=== PATIENT | male | born 1930 | race Caucasian/White ===

== ENCOUNTER 2016-04-07 17:26 | Inpatient (IN) | payer MEDICARE, OTHER ==
[~2016-04-07] VITALS: Ht 177.8 cm; Wt 57.2 kg
--- NOTE | ~2016-04-07 | CON ---
PATIENT'S NAME: NELY RUBIN [facility] AGE: 85 Y [address] ROOM: G3216 [place], [place] [address] [place] [facility] [place]: 04/07/2016 Consultation DISCHARGE DATE: FAMILY PHYSICIAN: SELENA SINGH MD ATTENDING PHYSICIAN: JAGJIT GIFFORD V DATE OF CONSULTATION: 04/08/2016 REFERRING PHYSICIAN: Raquel Sullivan MD A patient of the hospitalist. Dear colleague: Thank you for asking me to see Mr. Rubin who is an 85-year-old male patient admitted last night with 2 days' worth of significant shortness of breath. His initial work up, including his EKG, initial troponins, D-dimer, and chest x-ray were all negative. He was hospitalized for further workup. He has multiple comorbidities including prostate cancer, Parkinson disease, weight loss, and decrease in appetite. His is the one who gave most of the history. He has been getting more and more short of breath over the past several weeks to months, and the reason is not very clear. Currently, in the last 2 days, he was short of breath just walking just a couple of yards. There is no paroxysmal nocturnal dyspnea or orthopnea. There is no shortness of breath at rest when he is lying down. He has also had a dry cough for the past 2 months without any hemoptysis. He denies any chest pains whatsoever. He does have a sense of lightheadedness and a tendency to fall. He has no syncope though. He denies palpitations, and his ankles have been swelling up for a while; this may be as long as a couple of years. The patient has history of hypertension. He denies diabetes, elevated cholesterol, tobacco abuse, or family history of premature coronary artery disease. The patient has a history of coronary artery disease and had a PCI done 15 years ago. There is no history of OK, angina, or nitroglycerin use. There is no history of rheumatic fever, heart murmur, heart failure, dilated or enlarged heart, or any diagnosed cardiac arrhythmias. MEDICATIONS: 1. Wellbutrin 10 mg at bedtime. 2. Aricept 300 mg b.i.d. PATIENT'S NAME: NELY RUBIN [facility] AGE: 85 Y [address] ROOM: [place] [address] [place] [facility] [place]: 04/07/2016 Consultation DISCHARGE DATE: FAMILY PHYSICIAN: SELENA SINGH MD ATTENDING PHYSICIAN: JAGJIT GIFFORD V 3. Montelukast 10 mg a day. 4. Carbidopa and levodopa 25/100 two tablets t.i.d. 5. Protonix 40 mg a day. 6. Prednisone 5 mg a day, used for increasing his appetite. 7. Tamsulosin 0.4 mg at bedtime. 8. Carvedilol 3.125 b.i.d. 9. Lactulose, which has not really helped. 10. Aspirin 81 mg a day. 11. [place] Nasal [place]. 12. Magnesium oxide 400 mg once a day. 13. Multivitamin once a day. 14. Acetaminophen p.r.n. 15. CPAP unit. ALLERGIES: 1. SULFA. 2. STATINS CAUSE JOINT PAINS. 3. PIROXICAM. 4. RAMIPRIL. PAST MEDICAL HISTORY: 1. The patient has chronic scoliosis. 2. History of prostate cancer. His PSA, bone scan, and MRI have been "stable.". 3. Hernia, left sided, operated. 4. Bilateral cataract surgeries. 5. Bilateral glaucoma surgeries. 6. Appendectomy. 7. Parkinson disease. 8. Sleep apnea. 9. Narcolepsy. SOCIAL HISTORY: The patient is . He is retired. He denies abusing alcohol. His appetite has been poor for the past year, and he has lost almost 50 pounds in the last year to a year and a half. Sleep is fair. In fact, he may sleep too much during daytime from "narcolepsy." FAMILY HISTORY: No premature coronary artery disease. REVIEW OF SYSTEMS: A 12-point review of systems reveals: 1. A 50-pound weight loss as mentioned earlier. 2. Decrease in memory. PATIENT'S NAME: NELY RUBIN [facility] AGE: 85 Y [address] ROOM: [place] [address] [place] [facility] [place]: 04/07/2016 Consultation DISCHARGE DATE: FAMILY PHYSICIAN: SELENA SINGH MD ATTENDING PHYSICIAN: JAGJIT GIFFORD V 3. Heartburns. 4. Nasal drainage. 5. Coughing with swallowing and difficulty swallowing right away, possibly due to Parkinson disease. 6. Incontinence of urine. 7. DJD. 8. Depression. PHYSICAL EXAMINATION: VITAL SIGNS: His blood pressure is 156/79, heart rate 74, respirations 16, and afebrile. HEENT: Normal. NECK: Supple with no JVD, thyromegaly, lymphadenopathy, or carotid bruit. PMI is not well located. First and second heart sounds are regular. There are no added sounds or murmurs. The heart sounds are distant. CHEST: Clear to auscultation. ABDOMEN: Soft. EXTREMITIES: Trace edema, if anything. CENTRAL NERVOUS SYSTEM: Appears to be able to move all 4 extremities, and as mentioned earlier, has history of Parkinson's. ASSESSMENT: Worsening shortness of breath. He appears to have ruled out for myocardial infarction, and his D-dimer is negative, and BNP is negative. His chest x-ray is negative for any acute processes. He is getting an echocardiogram today. RECOMMENDATIONS: We will do a Lexiscan in the morning. Further evaluations will depend on the Lexiscan report. Again, I appreciate this opportunity to participate in the care of Mr. Rubin. MD LUIS LUCIANO/valeria /[id number] d: 04/08/16 1358 t: 04/26/16 1324, CONSULTATION REPORT
--- NOTE | ~2016-04-07 | ECHO ---
Transthoracic Echocardiography Report (TTE) Demographics Patient Name NELY RUBIN Date of Study 04/08/2016 MICHAEL Patient Number [id number] Visit Number [id number] Date of 1930 Room Number G3216 Gender Male Number Age 85 year(s) Referring Rosalina Mckeon MD Cross Country Truck Driver Nancy Marion RD, Physician RVT Physician Interpreting Nate García Mobile Equipment Servicer Physician Supervising Ordering Karissa Rodas MD/ROBINP Physician MD Nurse Stress Activities Counselor Conclusions Contractility Score Summary Normal Left Ventricular contractility was noted. Summary Technically difficult exam due to patient position and coughing. The estimated left ventricular ejection fraction is 60% with normal WM.LV internal dimension and WM are normal.DELGADO noted. MAC. Trivial MR. RHCs are mildly dilated. Increased RA pressures. Mild TR with normal pulmonary pressures. Small clinically insignificant circumferential pericardial effusion. There is no echocardiographic evidence of cardiac tamponade. Pleural effusion present. Procedure Type of Study TTE procedure:2D Echocardiogram. Procedure Date Date: 04/08/2016 Start: 01:55 PM Study Location: Inpatient Portable Technical Quality: Adequate visualization Indications:Dyspnea with exertion. Appropriate Use Criteria: 9 Patient Status: Routine HR: 65 bpm M-Mode/2D Measurements LV Diastolic Dimension: 3.32 cm LV Systolic Dimension: 1.9 cm LV Septum Diastolic: 0.9 cm LV PW Diastolic: 0.77 cm AO Root Dimension: 3.4 cm Cardiac Output: 2.99 l/min AV Cusp Separation: 1.8 cm Post Pericard Effusion: 1.5 cm LA volume: 26 ml RV Base: 2.65 cm LVOT: 1.6 cm RV Mid: 1.92 cm LVOT VTI: 22.9 cm RV Length: 5.46 cm LV Stroke volume: 46.02 ml TDI-S': 11.1 cm/s Doppler Measurements AV Peak Velocity: 1.01 m/s MV Peak E-Wave: 0.48 m/s AV Peak Gradient: 4.08 mmHg MV Peak A-Wave: 0.64 m/s AV Mean Gradient: 2 mmHg MV E/A Ratio: 0.74 LVOT Peak Velocity: 0.82 m/s MV P1/2t: 100 msec TR Gradient:23.43 mmHg PV Peak Velocity: 1.11 m/s Estimated RAP:8 mmHg PV Peak Gradient: 4.93 mmHg Estimated RVSP: 31 mmHg Estimated PASP: 31.43 mmHg E' Lateral Velocity: 0.04 m/s A' Lateral Velocity: 0.07 m/s Findings Left Ventricle DELGADO with normal internal dimension,EF and WM. Right Ventricle Mildly dilated RV with normal function Left Atrium Normal left atrial size. Right Atrium RA is mildly dilated. Mitral Valve Trivial mitral regurgitation by color Doppler. Mild mitral annular calcification. Aortic Valve Normal aortic valve structure and function. Tricuspid Valve Mild tricuspid regurgitation by color Doppler. Pulmonic Valve Normal pulmonic valve structure and function. Pericardial Effusion Small clinically insignificant circumferential pericardial effusion. There is no echocardiographic evidence of cardiac tamponade. Miscellaneous Visualized portions of the aortic root and ascending aorta appear normal in size. Pleural Effusion Pleural effusion present. Contractility Score LV regional wall motion:(0-Non visualized 1-Normal 2-Hypokinesis 3-Akinesis 4-Dyskinesis 5-Aneurysm) Signature dtt: Raquel Sullivan dtd: 04/08/16 8075 Physician Self Edit
--- NOTE | ~2016-04-07 | ESTC ---
Cardiac Perfusion Imaging Demographics Patient Name CARYN RODRIGUEZ Gender Male Patient Number [id number] Race Visit Number [id number] Ethnicity Corporate ID Room Number G3216 Accession Number [id number] Height 70 inches Date of 1930 Weight 174 pounds Interpreting Nate García Date of study 04/09/2016 Physician SOMERS Supervising /HARLEY ESTEVES Technologist Sona Cleaning MD Ordering Physician Nate García Stress Wilbur Allen MD biomass plant technician RVT Stress ECG Reading Nate García Nurse Saeid Morales Physician machine sign writer Procedure Type: Nuclear Stress Test:Pharmacological, Lexiscan, Cardiolite Stress Test Procedure Start time: 04/09/2016 10:45 Indications: Hypertension. Conclusions Summary No perfusion abnormalities. LVEF:77%. Normal wall motion. Stress Protocols Resting ECG RSR. Pre-stress physical exam: Un changed. Predicted HR: 136 bpm ECG Findings No ECG changes suggestive of ischemia. Arrhythmias No rhythm abnormality. Symptoms No symptoms. Stress Interpretation Normal hemodynamic changes with Lexiscan. No chest pains or other symptoms. No ischemia. No arrythmias. Imaging Results Applied corrections Study artifacts 1) Diaphragmatic attenuation - Motion correction applied High risk findings Summed scores - Summed stress score: 6 - Summed rest score: 7 - Summed difference score: -1 Stress ejection Ejection fraction:76 % EDV :72 ml ESV :17 ml Stroke volume :55 ml LV mass :99 gr LV size:Normal Normal LV function Imaging Protocols Rest Stress Isotope:Tc99m Sestamibi IV Isotope: Tc99m Sestamibi IV Isotope dose:11.9 mCi Isotope dose:36.2 mCi Date:04/09/2016 08:50 Date:04/09/2016 15:10 Technique: SPECT Technique: Gated Supine SPECT Supine IV remains in place after procedure. Scan Time:45-60 minutes post injection Procedure Medications - Regadenoson (Lexiscan) 0.4 mg IV over 10-15 sec. I.V. 0.4 mg. Medical History Admission Data Admission date: 04/10/2016 Admission Time: 11:00 Hospital Status: Inpatient. Signatures dtt: Raquel Sullivan dtanisa: 04/09/16 1045 Physician Self Edit
--- NOTE | ~2016-04-07 | PUL ---
PATIENT'S NAME: NELY RUBIN [facility] AGE: 85 Y [address] ROOM: [address] [address] [place] [facility] [place]: 04/10/2016 Pulmonary DISCHARGE DATE: FAMILY PHYSICIAN: SELENA SINGH MD ATTENDING PHYSICIAN: JAGJIT GIFFORD V NAME OF PROCEDURE: Overnight Pulse Oximetry DATE OF PROCEDURE: April 10 to April 11, 2016 REASON FOR EXAM: Nocturnal hypoxemia RESULTS: The test was performed on room air. The recording time was 8 hours, 34 minutes, with a total valid sampling time of 8 hours, 26 minutes and 48 seconds. The highest pulse was 128, lowest pulse was 78, with a mean pulse of 90. The highest SpO2 was 97%, lowest SpO2 was 81%, with a mean SpO2 of 92.9%. The patient spent 6 minutes and 40 seconds with SpO2 less than 89%, representing 1.3% of the total sleep time. The desaturation event index was normal at 4.4. PHYSICIAN INTERPRETATION: The patient has evidence of significant nocturnal hypoxia and would qualify for supplemental oxygen as per Medicare criteria. ALAN SAEED MD RFTunde/albino /[id number] dtt: 04/15/16 1522 , ALAN SAEED dtd: 04/15/16 1102
--- NOTE | ~2016-04-07 | DS ---
PATIENT'S NAME: NELY RUBIN [facility] AGE: 85 Y [address] ROOM: [address] [address] [place]: [facility] [place]MIT DATE: 04/10/2016 Discharge Summary DISCHARGE DATE: 04/20/2016 FAMILY PHYSICIAN: Linda Romano MD ATTENDING PHYSICIAN: Hair Hancock V PRINCIPAL DISCHARGE DIAGNOSIS: Failure to thrive. SECONDARY DIAGNOSES: 1. Dementia, possibly Parkinson's. This has not been finally decided. 2. Orthostatic hypotension. 3. Chronic hypoxic respiratory failure. 4. Obstructive sleep apnea, severe. 5. Prostate cancer. 6. Frequent falls with festinating, shuffling gait. CONSULTATIONS: 1. Neurology Dr. Asif. 2. Cardiology Dr. Sullivan. PROCEDURES: Echocardiogram, brief summary of results: This is a technically difficult exam which showed left ventricular ejection fraction 60% with normal left ventricular dimension and wall motion. Trivial mitral regurgitation. Increased right atrial pressures. There is no cardiac tamponade or pleural effusion present. Lexiscan Cardiolite stress: No perfusion abnormalities. Left ventricular ejection fraction 77%. Normal wall motion. Overnight pulse oximetry, April 10 to April 11, the patient has evidence for significant nocturnal hypoxia and qualifies for supplemental oxygen. He was noted to have a pulse up to 128 and mahamed of 78. Oxygen saturation with highest was 97%, lowest was 81%. CONSULTATIONS: None. COMPLICATIONS: None. BRIEF HISTORY: Mr. Rubin is an 85-year-old male who has had several years history of a shuffling gait. In the last 6 months, he had been seen by a neurologist, who thought he may have Parkinson's and started him on antiparkinsonian medications. He continued to have frequent falls. He has had a 50-pound weight loss over about 2 years. His has been the primary provider of care for her and gives a medical history as well. He was brought to the hospital because of her concern about worsening fatigue. She reports that on admission he had been sleeping all day and gets very short of breath with exertion, has difficulty with his balance with frequent falls. She reported to me he has been falling PATIENT'S NAME: NELY RUBIN [facility] AGE: 85 Y [address] ROOM: [address] [place], [place] [address] LOCATION: [facility] [place]MIT DATE: 04/10/2016 Discharge Summary DISCHARGE DATE: 04/20/2016 FAMILY PHYSICIAN: Linda Romano MD ATTENDING PHYSICIAN: Hair Hancock V at least once a week. He had severe constipation as well. So, there is general concern about his neurologic status with depression. He was seen by Dr. Sullivan for his complaint of shortness of breath. Although, his initial EKG, troponins, D-dimer, and chest x-ray were negative. He was found to have significant orthostatic hypotension. His orthostatic hypotension has persisted after the initiation of midodrine, most recently at 2:00 p.m. yesterday afternoon, lying his blood pressure was 123/61, standing was 95/51. He was evaluated for his dementia by Dr. Asif and Xochitl Troncoso. He is not obviously meet diagnostic criteria for Parkinson disease. He does not have a tremor at rest. He does not have cogwheel rigidity. Although, his gait is festinating and shuffling and it has been that way for quite a while. His orthostatics hypotension is a red flag for evidence against this diagnosis. He will follow up in 2 weeks with nurse practitioner and see Dr. Asif at his first available appointment in the next 4 to 6 weeks. As far as his nutritional status, his appetite has been good here twice as his intake he has actually been better than at home. He was started on Megace, was getting a dose of 40 mg a day which was increased to 400 mg daily on the . He will continue on this as an outpatient. He should continue to follow up with his primary care physician, Dr. Linda Romano. I would recommend the patient may benefit from an endocrinology evaluation sometime in the near future. Pending labs at the time of discharge include 25-hydroxy vitamin D level. INSTRUCTIONS FOR THIS DISCHARGE: The patient is a full code. He is to be transferred to [facility] with the regular diet nectar thickened liquids and one-to-one feeding as per speech evaluation here. His activity as tolerated with OT, PT, and speech therapy and weightbearing as tolerated with fall precautions. He is on oxygen p.r.n. and his CPAP at 8 cm while sleep with some supplemental oxygen. He should have ALEX stockings to the upper thighs on 12/09. Other followup appointments as above with Neurology. PCP should see within 1 week of discharge. MEDICATIONS AT THE TIME OF DISCHARGE: 1. Aspirin 81 mg chewable daily with food. 2. Zebeta 2.5 mg p.o. daily. 3. Bupropion 100 mg p.o. daily for depression. 4. Colace 100 mg t.i.d. constipation. 5. Magnesium oxide 400 mg p.o. daily for hypomagnesemia. 6. Megace 400 mg p.o. daily for poor appetite and mild protein malnutrition. 7. Midodrine. 8. Singulair 10 mg at h.s. PATIENT'S NAME: NELY RUBIN [facility] AGE: 85 Y [address] ROOM: [place] [address] LOCATION: [facility] [place] ADMIT DATE: 04/10/2016 Discharge Summary DISCHARGE DATE: 04/20/2016 FAMILY PHYSICIAN: Linda Romano MD ATTENDING PHYSICIAN: Hair Hancock V 9. Multiple vitamin 1 daily. 10. Protonix 40 mg p.o. daily. 11. MiraLAX p.o. b.i.d. 12. Senna two daily. 13. Flomax 0.8 mg at h.s. 14. Tylenol p.r.n. pain. 15. Bisacodyl suppository p.r.n. constipation. CONDITION AT DISCHARGE: Good. SULY BENSON MD LM/valeria /[id number] d: 04/21/16 1033 t: 04/25/16 1425, DISCHARGE SUMMARY
--- NOTE | ~2016-04-07 | CON ---
PATIENT'S NAME: NELY RUBIN [facility] AGE: 85 Y [address] ROOM: [address] [address] LOCATION: [facility] [place] ADMIT DATE: 04/10/2016 Consultation DISCHARGE DATE: FAMILY PHYSICIAN: SELENA SINGH MD ATTENDING PHYSICIAN: JAGJIT GIFFORD V DATE OF CONSULTATION: 04/11/2016 REFERRING PHYSICIAN: Raquel Sullivan MD PALLIATIVE MEDICINE CONSULTATION LOCATION: Med-Surg Unit, room 3216. REFERRING PROVIDER: Linda Webster PA-C CHIEF COMPLAINT: Palliative Care referral for family support due to multiple comorbidities. HISTORY OF PRESENT ILLNESS: The patient is an 85-year-old male, who was recently diagnosed within the last year with Parkinson disease, who was admitted to [facility] due to complaints of weakness, a 50-pound weight loss in the last 2 years as well as increasing shortness of breath and falls at home. During this hospital stay, the patient has had restlessness and confusion especially at night. He has continued to sleep the majority of the day and his appetite is slightly improved but not great. Prior to this hospitalization, the patient had been living at home with his who is his primary caregiver. He also has a son who lives here in town, but who is working mechanical drawing teacher. His also has a recent diagnosis of breast cancer and is currently undergoing chemotherapy. The patient complains of being very sleepy and tired. He denies pain. Has had some recent questionable issues with some dysphagia and possible aspiration. He admits to significant depression and is quite tearful during my visit. reports a 50-pound weight loss in the last 2 years. She has concerns as to whether his Parkinsons and conditions are being treated appropriately as he has had increasing weakness, unsteady gait, and multiple falls at home as well as one here at the hospital. Since hospitalization, his shortness of breath has improved and he has had some significant changes with orthostatic blood pressures and his expresses feelings of feeling very overwhelmed. Given all of this, Palliative Care has been consulted to assist with patient, family support, and goals of care discussion. PAST SURGICAL HISTORY: Previous Operations: PATIENT'S NAME: NELY RUBIN [facility] AGE: 85 Y [address] ROOM: [place] [address] LOCATION: [facility] [place] ADMIT DATE: 04/10/2016 Consultation DISCHARGE DATE: FAMILY PHYSICIAN: SELENA SINGH MD ATTENDING PHYSICIAN: JAGJIT GIFFORD V 1. Appendectomy. 2. Hernia repair. 3. Cardiac stents. PAST MEDICAL HISTORY: 1. Parkinson disease diagnosed within the last year. 2. Hypertension. 3. Depression. 4. GERD. 5. Memory impairment. 6. Obstructive sleep apnea, wears CPAP at night. 7. Narcolepsy. 8. Hypercholesterolemia. 9. History of prostate cancer. 10. Coronary artery disease. MEDICATIONS: Please see current MAR. SOCIAL HISTORY: The patient is . He had been living with his here in [place]. 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 Continuing to pay on mortgages and diagnosis of Parkinson as well as patient's 's recent diagnosis of breast cancer for which she is currently undergoing chemotherapy. No history of tobacco or alcohol use. FAMILY HISTORY: The patient's father had a stroke. The patient's mother had heart failure and cancer, and he has siblings with heart failure and heart disease. REVIEW OF SYSTEMS: All other systems reviewed and are negative except for as noted in HPI. PHYSICAL EXAMINATION: VITAL SIGNS: Blood pressure 126/57, heart rate 87, temperature 98.1, respirations 17, and O2 saturation is 94% on room air. GENERAL: Reveals a sleepy though easily arousable, frail appearing elderly white male, who is lying in the hospital bed, and does not appear to be in any acute distress. HEENT: Normocephalic and atraumatic. Pupils are equal and reactive to light. Sclerae anicteric. Conjunctivae pink. He does have a masklike faces. Tongue and mucous membranes are moist and pink. Dentition is adequate. CARDIOVASCULAR: Heart tones regular rate and rhythm. I am not able to note a murmur. PATIENT'S NAME: NELY RUBIN [facility] AGE: 85 Y [address] ROOM: [place] [address] LOCATION: [facility] [place] ADMIT DATE: 04/10/2016 Consultation DISCHARGE DATE: FAMILY PHYSICIAN: SELENA SINGH MD ATTENDING PHYSICIAN: JAGJIT GIFFORD V RESPIRATORY: Respirations are regular and nonlabored at rest. Clear to auscultation bilaterally. GASTROINTESTINAL: Abdomen is soft, nontender, and bowel sounds are present. No masses or organomegaly. MUSCULOSKELETAL: No significant joint deformities. Peripheral pulses are strong and equal bilaterally. No clubbing, cyanosis, or edema. SKIN: Warm and dry. No unusual lesions or rashes. NEUROLOGIC: Grossly intact. Does provide eye contact though he is quite drowsy. PSYCHIATRIC: The patient is quite tearful. 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 IMPRESSION AND PLAN: 1. Parkinson disease. Neurology on board. 2. Dysphagia. Speech is on board. 3. Weakness and unsteady gait. The patient is working with PT and OT. 4. Depression. I spent a significant amount of time visiting with both the patient and his . At this point, he is on Wellbutrin and this is a home medication. We would recommend follow up with an outpatient counselor as well as a Pastoral Care visit. 5. Advance directives. At this point, the patient is a full code per the chart. does report that they have completed advance directives and they are at home. I had a very long visit with the patient and his , provided active listening, emotional support, and problem solving. I talked with the patient and his through some of their issues and concerns. Did also discuss discharge options as this has been a concern for providers. We discussed short-term skilled stay for therapies and the patient relates that finances are a concern. Discussed with both the patient and his that should he choose to go to a long term, he would have initially have Medicare days as he went through his therapy and we would see how he does, versus having paid private caregivers come to the home versus an assisted living situation for both of them. But these last two options will be a bit more difficult as finances are a concern. The patient has a lot of guilt and depression related to his financial concerns with loss of business as well as their recent medical diagnoses. The patient is very tearful and feels responsible for having put them in this situation and provided emotional support and counseling, in regard to this would recommend outpatient counseling followup. I also did talk with the patient and his about Pastoral Care visit as I think this may also be helpful with some of his concerns. The patient may also benefit from a Psychiatry consult just to review medications, etc,. Following my visit, I coordinated care with Care Management as well as the Hospitalist Service. At this point, the goal is to work on a safe discharge plan with long-term goal being for the patient to PATIENT'S NAME: NELY RUBIN [facility] AGE: 85 Y [address] ROOM: [address] [address] LOCATION: [facility] [place] ADMIT DATE: 04/10/2016 Consultation DISCHARGE DATE: FAMILY PHYSICIAN: SELENA SINGH MD ATTENDING PHYSICIAN: JAGJIT GIFFORD V return back home. Total visit was 110 minutes greater than 50% of this time was spent providing education on chronic illnesses, multiple comorbidities, as well as counseling on situation and problem solving and coordination of care with staff. Thank you for allowing me to assist the patient and family. NOLAN ZARCO NP FOR MD DONTA SIDHU/modrashmi /[id number] CC: Linda Webster PA-C d: 04/19/16 1812 t: 04/25/16 1233, CONSULTATION REPORT
--- NOTE | ~2016-04-07 | CON ---
PATIENT'S NAME: NELY RUBIN [facility] AGE: 85 Y [address] ROOM: [address] [place], [place] [address] [place] [facility] [place]: 04/07/2016 Consultation DISCHARGE DATE: FAMILY PHYSICIAN: SELENA SINGH MD ATTENDING PHYSICIAN: JAGJIT GIFFORD V DATE OF CONSULTATION: 04/08/2016 REFERRING PHYSICIAN: Raquel Sullivan MD NEUROLOGIC CONSULTATION DATE AND TIME: 04/08/2016 at 01:50 p.m. REASON FOR CONSULTATION: Management of Parkinson's medications and recommendations for depression medications appropriate for Parkinson's. HISTORY OF PRESENT ILLNESS: This is an 85-year-old, male, whose history was provided by the spouse and from records from Dr. Muñoz's office. Although he has only been diagnosed for his Parkinson's for 6 months, his who is an RN has been suspicious he has had it much longer than that. He also has obstructive sleep apnea, prostate cancer that has been treated with radiation, coronary artery disease. The reason he comes to the hospital is really quite a few problems. The first concern is his worsening fatigue. He pretty much sleeps all day. He does get dyspneic with any exertion. He has been having frequent falls recently and he has lost about 50 pounds over the last 2 years. His is also concerned about the patient's being undertreated for his Parkinson's and his depression. His primary care provider will monitor as to the Parkinson's medication and his neurologist is on extended leave for 3 months. The patient does not volunteer much information except does complain of fatigue. He does say he is short of breath even with talking at times. He is also admitted for significant constipation. He denies any hallucinations, any vision disturbances, or any difficulties with thought processes. REVIEW OF SYSTEMS: The patient denies any recent illnesses. He states he only eats two meals a day and he is not hungry much after that. He does complain of significant constipation. Denies any palpitations, but does complain of shortness of breath. Does complain of frequent cough. Does complain of weakness and frequent falls. 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 ROOM: [address] [place], [place] [address] [place] [facility] [place] DATE: 04/07/2016 Consultation DISCHARGE DATE: FAMILY PHYSICIAN: SELENA SINGH MD ATTENDING PHYSICIAN: JAGJIT GIFFORD V impairment, abnormal weight loss, obstructive sleep apnea, malaise and fatigue, and narcolepsy. He also complains of hypercholesterolemia and prostate cancer. MEDICATIONS: On the chart and reviewed by me. Of note, for neurology he is on Wellbutrin 100 mg daily. This has been wean down due to somnolence. He is on carbidopa and levodopa 25/100, 2 tablets at 9 o'clock, 1:00 p.m., and 3:00 p.m. He was taking Sinemet CR at night, however, this was thought to have induced hallucination and he is not on that anymore. He is also on donepezil 10 mg p.o. q. day. FAMILY HISTORY: Reviewed and on the chart and not significant due to his advanced age. SOCIAL HISTORY: The patient is . 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 PHYSICAL EXAMINATION: VITAL SIGNS: His blood pressure is 154/72, heart rate is 58. He is saturating 100% on room air. His temperature is afebrile and respirations are 18. GENERAL: This is a very thin cachectic elderly male, in no acute distress. NEUROLOGIC: He does show a masked face presentation. There is no cogwheel rigidity. Of note, he was examined prior to his 1:00 p.m. dose of Sinemet. His gait is somewhat shuffling. In looking at him get up from the bed, he leans forward. His posture is with his head forward and slightly bent. EYES: EOMI. Pupils equal and reactive to light and accommodation. NECK: Forward leaning. No lymphadenopathy. No rigidity. LUNGS: Clear to auscultation. HEART: Regular. GASTROINTESTINAL: Abdomen is soft, nontender, and nondistended. PSYCHIATRIC: Reveals depressed mood. Flat affect. DIAGNOSTIC DATA: A negative set of cardiac enzymes. Normal TSH, normal CRP. He did have a normal CBC with normal differential. Procalcitonin was negative. He was negative for influenza, and he does have a normal chest x-ray. ASSESSMENT AND PLAN: 1. Parkinson disease. We will involve Dr. Asif in assessment of patient for possible step off carbidopa and levodopa. PATIENT'S NAME: NELY RUBIN [facility] AGE: 85 Y [address] ROOM: [address] [address] [place] [facility] [place]: 04/07/2016 Consultation DISCHARGE DATE: FAMILY PHYSICIAN: SELENA SINGH MD ATTENDING PHYSICIAN: JAGJIT GIFFORD V 2. Depression. The patient is given bupropion 100 mg daily. Again we will involve Dr. Asif in discussion on management of this medication. 3. Hallucinations with parkinsonism. The patient was to start on Nuplazid at his other facility, but the plans fell through. The patient will need to develop an outpatient plan for managing his Parkinson's medications. The was present during the exam and discussed the plan of care. She voices no questions. Thank you for this very interesting consult. TRISTA HESS APRN FOR SAMY ASIF MD PP/modl /[id number] d: 04/08/16 2253 t: 04/26/16 1604, CONSULTATION REPORT
--- NOTE | ~2016-04-07 | HP ---
PATIENT'S NAME: NELY RUBIN [facility] AGE: 85 Y [address] ROOM: [place] [address] [place] [facility] [place]: 04/07/2016 History & Physical DISCHARGE DATE: FAMILY PHYSICIAN: SELENA SINGH MD ATTENDING PHYSICIAN: JAGJIT GIFFORD V DATE OF SERVICE: CHIEF COMPLAINT FOR THIS ADMISSION: Fatigue. HISTORY OF PRESENT ILLNESS: The patient is an 85-year-old male, whose history is provided primarily by his spouse. He has a past medical history of recently diagnosed Parkinson's (6 months ago), obstructive sleep apnea, and prostate cancer, treated with radiation as well as coronary artery disease, status post distal stent. He has been brought in by his due to an amalgamation of problems. 1. The first major concern is worsening fatigue. The patient pretty much sleeps all day and gets very dyspneic with exertion. 2. Difficulty with balance. The patient falls very frequently. 3. Severe constipation. 4. Profound weight loss approximately 50 pounds in the last 2 years. She has been concerned about the patient being undertreated for his Parkinson's as well as his depression, but his current regimen has not been adjusted by primary care provider and his neurologist is out of town. The patient himself just volunteers fatigue, but no other symptoms. He does, however, become considerably short of breath, even with talking. He denies any nausea, vomiting, chest pain, or palpitations, but does admit to significant constipation. REVIEW OF SYSTEMS: All systems have been reviewed and are negative aside from the pertinent positives mentioned above. EMERGENCY ROOM COURSE: In the ER, the patient had a detailed workup, all of which was remarkably negative. PAST MEDICAL HISTORY: As stated in the HPI. SOCIAL HISTORY: Negative for any toxic habits. 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 PATIENT'S NAME: NELY RUBIN [facility] AGE: 85 Y [address] ROOM: [place] [address] [place] [facility] [place]: 04/07/2016 History & Physical DISCHARGE DATE: FAMILY PHYSICIAN: SELENA SINGH MD ATTENDING PHYSICIAN: JAGJIT GIFFORD V FAMILY HISTORY: Reviewed and is noncontributory due to his advanced age. CURRENT MEDICATIONS: 1. Acetaminophen. 2. Aspirin. 3. Bupropion. 4. Carbidopa. 5. Levodopa. 6. CPAP. 7. Donepezil. 8. Etodolac. 9. Lactulose. 10. Magnesium oxide. 11. Montelukast. 12. Multivitamin. 13. Pantoprazole. 14. Prednisone, which was started as an appetite stimulant. 15. Sodium chloride nasal spray. 16. Tamsulosin. PHYSICAL EXAMINATION: VITAL SIGNS: Blood pressure 178/81, heart rate 56, saturating 100% on 2 L nasal cannula, temperature 98.1, and respirations are 16. GENERAL: Appears as a cachectic elderly male, in no acute distress. NEUROLOGICAL: Shows slightly masked facies, but no cogwheel rigidity and no focal neurological deficits. EYES: Reveal pupils equal and reactive to light. LYMPHATIC: Shows no cervical lymphadenopathy. ENDOCRINE: Shows no thyromegaly. LUNGS: Clear to auscultation. HEART: Rate is regular. No appreciable murmurs, gallops, or rubs. GI: Abdomen is soft, nontender, nondistended. : Reveals no costovertebral angle tenderness. VASCULAR: Reveals 2+ pedal pulses. MUSCULOSKELETAL: Shows some muscle atrophy. PSYCHIATRIC: Reveals depressed mood with preserved cognition and flat affect. DIAGNOSTIC DATA: The patient had an ABG with a pO2 of 65, saturating 93%, and unremarkable basic metabolic workup. Negative sets of cardiac enzymes. Normal TSH. Normal CRP. Normal CBC, normal differential. Negative procalcitonin. Negative influenza, and a normal chest x-ray. ASSESSMENT AND PLAN: PATIENT'S NAME: NELY RUBIN [facility] AGE: 85 Y [address] ROOM: [address] [address] [place] [facility] [place]: 04/07/2016 History & Physical DISCHARGE DATE: FAMILY PHYSICIAN: SELENA SINGH MD ATTENDING PHYSICIAN: JAGJIT GIFFORD V 1. This is an 85-year-old male, who is being admitted with adult failure to thrive. I believe that his symptoms are probably a combination of Parkinson's as well as undertreated depression. For this, I offers a Neurology consultation in the morning, which the gladly agreed to. She does feel that his Parkinson's is undertreated and in fact the patient had a decrease in the dose of his Wellbutrin. Interestingly, he is on donepezil, but I really do not appreciate any evidence of dementia on my exam. I also recommended that a consultation with a psychiatrist may be helpful in case his presentation is more attributed to depression. Given the fact that he does get short of breath, we will get a 2- dimensional echocardiogram, though he does not have any evidence of heart failure on exam or on his chest x-ray. 2. Constipation: This is a significant concern for the caregiver, and we will take him off lactulose and put him on Colace and MiraLAX. 3. Obstructive sleep apnea: The patient was recently rechecked, and he does well on 8 mm of CPAP, I will continue that. 4. Steroid therapy: I do not believe that the patient is benefitting from steroids at all, and we will try and taper down the dose in a careful manner as he has been on prednisone for over a month now. 5. Deep vein thrombosis prophylaxis will be instituted if the patient is in the hospital for longer than 48 hours. 6. Disposition: We will get PT and OT involved in his care. Additional management will depend on clinical course. Time dedicated to this patient's encounter is 35 minutes. MD ANANYA JAMES/valeria /[id number] D: [id number] T: [id number] HISTORY & PHYSICAL
--- NOTE | ~2016-04-07 | ER ---
PATIENT'S NAME: NELY RUBIN [facility] AGE: 85 Y [address] ROOM: [address] [address] [place] [facility] [place]: 04/07/[place] ER/Outpatient Report DISCHARGE DATE: FAMILY PHYSICIAN: SELENA SINGH MD ATTENDING PHYSICIAN: JAGJIT GIFFORD V Admission date and time documented on the medical record. I saw the patient at 1805 hours when I came on shift. CHIEF COMPLAINT: Shortness of breath with exertional dyspnea worsening over the past week. HISTORY OF PRESENT ILLNESS: This patient is an 85-year-old male, who over the past week has had increasing shortness of breath, over the past 2 days has had increasing exertional dyspnea. Does have a productive cough at times. No chest pain. No back pain. No headache, eyes, ears, nose, throat pain. No fall or trauma. He was diagnosed with Parkinson disease about 6 months ago, so he is having more and more difficulty with ambulation. No recent fever, chills, or sweats. No lightheadedness, dizziness, syncope, or near syncope. No abdominal pain, nausea, vomiting, diarrhea. No urinary frequency, urgency, or dysuria. Has a decreased appetite. He has lost 50 pounds over the past 2 years. No joint/muscle swelling, redness, or pain. He does have Parkinson's with cogwheel rigidity. No skin eruptions or rash. Does have a history of obstructive sleep apnea, uses CPAP. Has coronary artery disease, narcolepsy. Parkinson's with some dementia. No endocrine problems. No psych issues. HOME MEDICATIONS: See attached medication list. ALLERGIES: ALTACE, STATINS, SULFA, FELDENE. SOCIAL HISTORY: Nonsmoker and nondrinker. SIGNIFICANT PAST MEDICAL HISTORY: Atherosclerotic ischemic heart disease with coronary artery disease, obstructive sleep apnea on CPAP, narcolepsy, prostate cancer, Parkinson disease, dementia, hard of hearing, some depression, and glaucoma. OPERATIONS: Inguinal herniorrhaphy, cardiac catheterization with PTCA and stenting, and appendectomy. REVIEW OF SYSTEMS: All systems reviewed by me are negative with the exception of those discussed PATIENT'S NAME: NELY RUBIN [facility] AGE: 85 Y [address] ROOM: [id number] [place] [id number] [place] [facility] [place]: 04/07/2016 ER/Outpatient Report DISCHARGE DATE: FAMILY PHYSICIAN: SELENA SINGH MD ATTENDING PHYSICIAN: JAGJIT GIFFORD V in the history of present illness. PHYSICAL EXAMINATION: VITAL SIGNS: Temperature 98, pulse 68, respirations 18, blood pressure 189/86, O2 saturation on room air was 97%. HEAD: Normocephalic. EYES: Extraocular muscles intact. PERRL. Sclerae and conjunctivae clear, nonicteric. EARS, NOSE, THROAT: Clear. Mucous membranes moist. Teeth and jaw intact. NECK: No nuchal rigidity. No findings of adenopathy. SPINE: Negative. LUNGS: Clear no rales, rhonchi, or wheezes. HEART: Regular. Pulses are palpable. Possibly mildly tachypneic. No respiratory distress. ABDOMEN: Soft, nondistended, nontender. Good bowel tones. No organomegaly. No mass palpable. PELVIS: Stable. EXTREMITIES: No peripheral edema, cyanosis, or deformity. Has a little bit of rigidity in his joints. NEUROVASCULAR: Intact. SKIN: Clear. PSYCH: The patient is awake, cooperative. LABORATORY AND DIAGNOSTIC DATA: Chest x-ray showed no acute infiltrate or changes. EKG showed sinus rhythm. No acute ST elevation, ischemia, or arrhythmia. Laboratory influenza A and B were both negative. CMS was normal. Magnesium was 2.3. CPK was 36, point of care cardiac enzymes were normal. CRP was less than 0.29, TSH was 3.05, proBNP was 142, D-dimer was normal at 0.29, white count is 4600, 67 segs, 20 lymphs, 12 monos. Hemoglobin was 12.6, hematocrit 37.8, platelet count is 215,000. PTT was 26, pro-time is 9.9 with an INR 1.0. Procalcitonin was less than 0.05. Arterial blood gases on room air showed a pH of 7.44, pCO2 of 45, PO2 of 65, and O2 saturation 93%. Lactate was 0.7. EMERGENCY DEPARTMENT COURSE: I did give the patient 4 baby aspirin orally in the emergency room and started on IV saline lock. IMPRESSION: 1. Hypoxia, possible respiratory failure. The patient has exertional dyspnea and shortness of breath, worsening over the past week. 2. Obstructive sleep apnea, using CPAP. 3. Parkinson disease. 4. History of prostate cancer. 5. Mild dementia. PATIENT'S NAME: NELY RUBIN [facility] AGE: 85 Y [address] ROOM: [address] [address] [place] [facility] [place]: 04/07/2016 ER/Outpatient Report DISCHARGE DATE: FAMILY PHYSICIAN: SELENA SINGH MD ATTENDING PHYSICIAN: JAGJIT GIFFORD V 6. Atherosclerotic ischemic heart disease, coronary artery disease. 7. Narcolepsy. 8. Hard of hearing. PLAN: Discussed the patient with Dr. Gifford, hospitalist who will admit the patient to MICU for observation status at this time. Did start him on some oxygen at 2 L/minute per nasal cannula. Discussion ensued with the patient concerning my findings recommendations, he and his understand. MD ROSEMARY EVANGELISTA/modl /[id number] d: 04/08/16146 t: 04/12/16 1831, OUTPATIENT REPORT
[2016-04-07 18:34] LABS: BICARBONATE 30.6 mmol/L (18.0-23.0); LACTATE 0.7 mEq/L (0.50-1.60); PCO2 45 mmHg (35-45); PO2 65 mmHg (80-90)
[2016-04-07 18:41] LABS: BASOPHIL % 0.4 %; EOSINOPHIL % 0.4 %; HEMATOCRIT 37.8 % (33.0-50.0); HEMOGLOBIN 12.6 g/dL (11.0-16.0); IMMATURE GRANULOCYTE % 0.2 %; LYMPHOCYTE # 0.9 K/uL (0.8-4.0); LYMPHOCYTE % 20.2 %; MCH 32.5 pg (27.0-34.0); MCHC 33.3 gm/dL (32.0-36.5); MCV 97.4 fl (83.0-98.0); MONOCYTE # 0.5 K/uL (0.0-1.0); MONOCYTE % 11.5 %; MPV 9.2 fl (9.4-12.4); NEUTROPHIL # (ANC) 3.1 K/uL (1.4-9.0); NEUTROPHIL % 67.3 %; NRBC % 0 /100WBC (0-0.00); PLATELET COUNT 215 K/uL (150-450); RBC 3.88 M/uL (3.50-5.50); RDW-CV 12.3 % (11.9-14.6); WBC 4.6 K/uL (4.0-11.0)
[2016-04-07 18:47] LABS: PROTIME 9.9 SECONDS (9.6-11.1); PTT 26 SECONDS (25-32)
[2016-04-07 19:01] LABS: ALBUMIN 3.8 gm/dL (3.5-5.0); ALK PHOS 72 IU/L (33-138); ANION GAP 10.7 (10.0-19.0); AST 12 IU/L (10-40); BLOOD UREA NITROGEN 13 mg/dL (6-24); CALCIUM 8.8 mg/dL (8.5-10.5); CHLORIDE 98 mMol/L (96-110); CO2 30 mMol/L (22-32); CPK 36 IU/L (35-332); CREATININE 0.8 mg/dL (0.6-1.3); ESTIMATED GFR (MDRD EQUATION) > 60; MAGNESIUM 2.3 mg/dL (1.3-2.6); POTASSIUM 3.7 mMol/L (3.7-5.1); SODIUM 135 mMol/L (135-145); TOTAL BILIRUBIN 0.6 mg/dL (0.0-1.5); TOTAL PROTEIN 7.3 g/dL (6.0-8.4)
[2016-04-07 19:02] LABS: ALT < 10 IU/L (12-78)
[2016-04-07 21:02] LABS: CPK 40 IU/L (35-332)
[2016-04-07] MEDS ORDERED: WELLBUTRIN100 MG PO (23:11)
[2016-04-07] MEDS ORDERED: ARICEPT10 MG PO (23:13)
[2016-04-07] MEDS ORDERED: LODINE PO (23:13)
[2016-04-07] MEDS ORDERED: SINGULAIR10 MG PO (23:14)
[2016-04-07] MEDS ORDERED: SINEMET 25-1001 EACH PO (23:16)
[2016-04-07] MEDS ORDERED: PROTONIX40 MG PO (23:17)
[2016-04-07] MEDS ORDERED: DELTASONE5 MG PO (23:17)
[2016-04-07] MEDS ORDERED: FLOMAX0.4 MG PO (23:19)
[2016-04-07] MEDS ORDERED: COREG 3.1253.125 MG PO (23:19)
[2016-04-07] MEDS ORDERED: ENULOSE SYRUP1 ML PO (23:20)
[2016-04-07] MEDS ORDERED: ASPIRIN (CHILDR81 MG PO (23:21)
[2016-04-07] MEDS ORDERED: OCEAN NASAL) (A44 ML NOSE (23:22)
[2016-04-07] MEDS ORDERED: MAGNESIUM250 M1 PO (23:27)
[2016-04-07] MEDS ORDERED: THERA-VITE W/ B1 TAB PO (23:28)
[2016-04-07] MEDS ORDERED: TYLENOL325 MG PO (23:29)
[2016-04-07] MEDS ORDERED: CPAP (23:31)
[2016-04-16 05:51] LABS: BASOPHIL # 0.1 K/uL (0.0-0.2); BASOPHIL % 1.2 %; EOSINOPHIL # 0.1 K/uL (0.0-0.5); EOSINOPHIL % 1.8 %; HEMATOCRIT 35.5 % (33.0-50.0); HEMOGLOBIN 11.7 g/dL (11.0-16.0); IMMATURE GRANULOCYTE % 0.4 %; LYMPHOCYTE # 1.5 K/uL (0.8-4.0); LYMPHOCYTE % 29.9 %; MCH 32.5 pg (27.0-34.0); MCV 98.6 fl (83.0-98.0); MONOCYTE # 0.7 K/uL (0.0-1.0); MONOCYTE % 14.7 %; MPV 9.3 fl (9.4-12.4); NEUTROPHIL # (ANC) 2.6 K/uL (1.4-9.0); NRBC % 0 /100WBC (0-0.00); PLATELET COUNT 246 K/uL (150-450); RDW-CV 12.3 % (11.9-14.6); WBC 4.9 K/uL (4.0-11.0)
[2016-04-16 06:08] LABS: ANION GAP 14.8 (10.0-19.0); BLOOD UREA NITROGEN 13 mg/dL (6-24); CALCIUM 8.7 mg/dL (8.5-10.5); CHLORIDE 103 mMol/L (96-110); CO2 26 mMol/L (22-32); CREATININE 0.7 mg/dL (0.6-1.3); ESTIMATED GFR (MDRD EQUATION) > 60; POTASSIUM 3.8 mMol/L (3.7-5.1); SODIUM 140 mMol/L (135-145)
[2016-04-19 06:23] LABS: ANION GAP 8.7 (10.0-19.0); BLOOD UREA NITROGEN 15 mg/dL (6-24); CALCIUM 8.6 mg/dL (8.5-10.5); CHLORIDE 102 mMol/L (96-110); CO2 28 mMol/L (22-32); CREATININE 0.7 mg/dL (0.6-1.3); ESTIMATED GFR (MDRD EQUATION) > 60; POTASSIUM 3.7 mMol/L (3.7-5.1); SODIUM 135 mMol/L (135-145)
== END 2016-04-20 10:15 | DRG 92 ==
LOC: GMED 17:26 → GMSU 22:22
PROVIDERS: Emergency Medicine; Internal Medicine Interventional Cardiology; ADMIT Internal Medicine
DX: G92 Toxic encephalopathy (principal); J96.11 Chronic respiratory failure with hypoxia; E44.0 Moderate protein-calorie malnutrition; R13.10 Dysphagia, unspecified; G47.34 Idiopathic sleep related nonobstructive alveolar hypoventilation; M41.9 Scoliosis, unspecified; R62.7 Adult failure to thrive; I95.1 Orthostatic hypotension; G20 Parkinson's disease; Z51.5 Encounter for palliative care; G47.33 Obstructive sleep apnea (adult) (pediatric); I25.10 Atherosclerotic heart disease of native coronary artery without angina pectoris; K59.00 Constipation, unspecified; T42.75XA Adverse effect of unspecified antiepileptic and sedative-hypnotic drugs, initial encounter; F32.9 Major depressive disorder, single episode, unspecified; R29.6 Repeated falls; F02.80 Dementia in other diseases classified elsewhere, unspecified severity, without behavioral disturbance, psychotic disturbance, mood disturbance, and anxiety; Z68.24 Body mass index [BMI] 24.0-24.9, adult; R26.89 Other abnormalities of gait and mobility; I10 Essential (primary) hypertension; Z95.5 Presence of coronary angioplasty implant and graft; Z92.3 Personal history of irradiation; Z79.82 Long term (current) use of aspirin; Z79.52 Long term (current) use of systemic steroids; Z85.46 Personal history of malignant neoplasm of prostate; K21.9 Gastro-esophageal reflux disease without esophagitis; H91.90 Unspecified hearing loss, unspecified ear; Z66 Do not resuscitate; R35.0 Frequency of micturition
CPT/HCPCS: A9500; G0378; J1650; J2785

== ENCOUNTER 2016-09-06 18:53 | Emergency (ER) | payer MEDICARE, OTHER ==
--- NOTE | ~2016-09-06 | ER ---
PATIENT'S NAME: NELY RUBIN [facility] AGE: 85 Y [address] ROOM: [place] [address] LOCATION: [facility] ADMIT DATE: 09/06/2016 ER/Outpatient Report DISCHARGE DATE: 09/06/2016 FAMILY PHYSICIAN: Brianna Kirk MD ATTENDING PHYSICIAN: Rajat Tran Time of Arrival: 1900. Time of Exam: 1922. CHIEF COMPLAINT: Fall. HISTORY OF PRESENT ILLNESS: reports just prior to arrival the patient was in the bathroom, he states he hit his foot on the tub and then he fell forward and ended up falling into the tub landing on his face. He has swelling to the right upper forehead area and bruising to his nose. Denies any loss of consciousness. Has not had any nausea. No vomiting. He denies having any pain at this time. is concerned because this is the second time he has fallen today. He fell earlier and hit the closet door of the den. At that time, he received an abrasion to his right upper arm area and right shoulder, but did not hit his head and did not have any loss of consciousness. reports he has been falling more frequently. He does have Parkinson's and orthostatic disease she states. They have been increasing his medication in order to try and prevent him from falling frequently. He does have a home health nurse that comes and checks on him on regular basis. He lives with his . He has a home OT and physical therapy. ALLERGIES: ON HIS CHART AND WERE REVIEWED BY ME. MEDICATIONS: On his chart and were reviewed by me. PAST MEDICAL HISTORY: Parkinson, obstructive sleep apnea with CPAP, prostate cancer which he received radiation therapy for, coronary artery disease, GERD, depression, and frequent falls. PAST SURGICAL HISTORY: Appendectomy, hernia repair, cardiac stents. SOCIAL HISTORY: He lives at home with his . They do live in an apartment. She states the bathroom is quite small. He is not able to take his walker into the bathroom PATIENT'S NAME: NELY RUBIN [facility] AGE: 85 Y [address] ROOM: [place] [address] LOCATION: [facility] ADMIT DATE: 09/06/2016 ER/Outpatient Report DISCHARGE DATE: 09/06/2016 FAMILY PHYSICIAN: Brianna Kirk MD ATTENDING PHYSICIAN: Rajat Tran with him. He does not use tobacco, drugs, or alcohol. Primary provider is Dr. Kirk and Dr. Sullivan. REVIEW OF SYSTEMS: All negative other than those mentioned in the HPI. PHYSICAL EXAMINATION: VITAL SIGNS: He weighed 57.7 kg. Blood pressure is 196/92, pulse is 62, respirations 16, temperature of 97.3, O2 saturation was 98% on room air. GENERAL: He is awake, alert, and oriented x4. His skin is pink, warm, and dry. RESPIRATIONS: Even and nonlabored. HEENT: Mauricio Coma Scale is 15. The patient has a small contusion to the right upper forehead area. He has bruising to the tip of his nose. Pupils are equal and reactive to light. Extraocular movement is intact. TMs are pearly tesfaye. Nasal is clear. Oropharynx is pink and moist. NECK: No lymphadenopathy of the neck is noted. He has no tenderness when palpating along the C-spine. LUNGS: Lung sounds are clear throughout. HEART: Regular rate and rhythm. ABDOMEN: Soft, nondistended. Bowel sounds are present. MUSCULOSKELETAL: He is able to make a strong hand grasp, move his arms with active range of motion. Denies increased pain of the shoulders or thoracic back area. Denies any chest discomfort. He has strong radial and ulnar pulses bilaterally. No peripheral edema noted. He has strong pedal pulses. He is able to do straight leg raises without increased pain of his lower back. No drift of his extremities is noted. DIAGNOSTIC DATA: CBC is within normal limits. Chem panel is within normal limits. Clean-catch UA is negative for infection. CT of the head shows no intracranial process. CT of the maxillofacial bones show no fractures. CT of the cervical spine shows no acute cervical spine abnormalities. The patient rested comfortably on the cart. He continues to deny having any pain or discomfort. Vital signs have remained stable. Neurological exam is unchanged. IMPRESSION: Fall with head injury, contusion to the forehead. PLAN: Home, rest. Continue his current medications. Follow up with his primary provider in the next 2 to 3 days or return to the ER as needed. Son and verbalized understanding. PATIENT'S NAME: NELY RUBIN [facility] AGE: 85 Y [address] ROOM: [place], [place] [address] LOCATION: [facility] ADMIT DATE: 09/06/2016 ER/Outpatient Report DISCHARGE DATE: 09/06/2016 FAMILY PHYSICIAN: Brianna Kirk MD ATTENDING PHYSICIAN: Rajat Tran CHRISTIAN DANIELS APRN FOR [employer]/niranjanl /[id number] d: 09/07/16 0130 t: 09/09/16 1245, OUTPATIENT REPORT
[~2016-09-06 18:53] MED LIST: ARICEPT10 MG PO; ASPIRIN (CHILDR81 MG PO; COREG 3.1253.125 MG PO; CPAP; DELTASONE5 MG PO; ENULOSE SYRUP1 ML PO; FLOMAX0.4 MG PO; LODINE PO; MAGNESIUM250 M1 PO; OCEAN NASAL) (A44 ML NOSE; PROTONIX40 MG PO; SINEMET 25-1001 EACH PO; SINGULAIR10 MG PO; THERA-VITE W/ B1 TAB PO; TYLENOL325 MG PO; WELLBUTRIN100 MG PO
[2016-09-06 19:48] LABS: BILIRUBIN URINE NEGATIVE (NEGATIVE); BLOOD URINE NEGATIVE /UL (NEGATIVE); COLOR URINE YELLOW (YELLOW); GLUCOSE URINE NEGATIVE (NEGATIVE); KETONE URINE NEGATIVE (NEGATIVE); LEUKOCYTES URINE NEGATIVE /UL (NEGATIVE); NITRITE URINE NEGATIVE (NEGATIVE); PROTEIN URINE NEGATIVE (NEGATIVE); TURBIDITY URINE CLEAR (CLEAR); UROBILINOGEN URINE NORMAL (NORMAL)
[2016-09-06 19:51] LABS: BASOPHIL % 0.7 %; EOSINOPHIL # 0.1 K/uL (0.0-0.5); EOSINOPHIL % 1.8 %; HEMATOCRIT 34.9 % (33.0-50.0); HEMOGLOBIN 11.8 g/dL (11.0-16.0); IMMATURE GRANULOCYTE % 0.5 %; LYMPHOCYTE # 1.4 K/uL (0.8-4.0); LYMPHOCYTE % 24.8 %; MCH 33.9 pg (27.0-34.0); MCHC 33.8 gm/dL (32.0-36.5); MCV 100.3 fl (83.0-98.0); MONOCYTE # 0.7 K/uL (0.0-1.0); MONOCYTE % 12.6 %; NEUTROPHIL # (ANC) 3.4 K/uL (1.4-9.0); NEUTROPHIL % 59.6 %; NRBC % 0 /100WBC (0-0.00); PLATELET COUNT 207 K/uL (150-450); RBC 3.48 M/uL (3.50-5.50); RDW-CV 11.9 % (11.9-14.6); WBC 5.7 K/uL (4.0-11.0)
[2016-09-06 20:10] LABS: ALBUMIN 3.6 gm/dL (3.5-5.0); CALCIUM 8.3 mg/dL (8.5-10.5); CREATININE 0.7 mg/dL (0.6-1.3); TOTAL BILIRUBIN 0.4 mg/dL (0.0-1.5); TOTAL PROTEIN 6.9 g/dL (6.0-8.4)
== END 2016-09-06 21:03 | disposition disaster alternative care site (69) ==
LOC: GACC 18:53
PROVIDERS: Nurse Practitioner Family
DX: S00.83XA Contusion of other part of head, initial encounter (principal); I25.10 Atherosclerotic heart disease of native coronary artery without angina pectoris; F32.9 Major depressive disorder, single episode, unspecified; G47.33 Obstructive sleep apnea (adult) (pediatric); G20 Parkinson's disease; C61 Malignant neoplasm of prostate; K21.9 Gastro-esophageal reflux disease without esophagitis; Z91.81 History of falling; Z90.49 Acquired absence of other specified parts of digestive tract; Z98.890 Other specified postprocedural states; Z88.2 Allergy status to sulfonamides; Z79.899 Other long term (current) drug therapy; Z88.8 Allergy status to other drugs, medicaments and biological substances; Z79.82 Long term (current) use of aspirin; W18.09XA Striking against other object with subsequent fall, initial encounter